=== PATIENT | female | born 2000 | race African-American/Black ===

== ENCOUNTER 2020-08-15 20:40 | Emergency (ER) | payer MEDICAID, OTHER ==
[~2020-08-15] VITALS: Ht 167.6 cm; Wt 69.4 kg
[2020-08-15 21:24] VITALS: BP 111/70
== END 2020-08-16 00:56 | disposition left against medical advice (07) ==
LOC: ER 20:42
DX: R10.2 Pelvic and perineal pain (principal); Z87.828 Personal history of other (healed) physical injury and trauma